=== PATIENT | female | born 1950 | race African-American/Black ===

== ENCOUNTER → 2016-03-30 | Outpatient (CLI) | payer OTHER ==
[~2016-03-30] MED LIST: AMOXICILLIN875 MG PO; AZOR 10-40 MG1 EACH PO; BENICAR20 MG PO; BYSTOLIC10 MG PO; CITRATE OF MAG296 ML PO; CLONIDINE HCL0.2 M2; CLONIDINE HCL0.2 M2 PO; CLONIDINE HCL0.3 M3 PO; COLACE100 MG PO; DILTIAZEM 24HR300 M2 PO; DOLOPHINE HCL10 MG PO; FUROSEMIDE 20 M20 M1 PO; GABAPENTIN 100100 MG PO; LIDODERM 5%1 PATCH TOP; LISINOPRIL5 MG PO; MS CONTIN 30 MG30 M1; MS CONTIN 30 MG30 M1 PO; MS CONTIN100 MG PO; MS CONTIN30 MG PO; NORCO 5-325 TA1 EACH PO; NORVASC10 MG PO; ONDANSETRON HCL4 M2 PO; OXYCODONE HCL15 MG PO; OXYCONTIN CR 2020 MG; OXYCONTIN CR 8080 M1 PO; OXYCONTIN PO; OXYCONTIN30 MG PO; OXYIR 5 MG CAPSU5 M1 PO; PEPCID40 MG PO; PERCOCET 5-3251 EACH PO; PERCOCET 7.5-51 EACH PO; PHENERGAN 25 MG25 M1 PO; POTASSIUM20 PO; PRILOSEC 20 MG20 MG PO; ROXICODONE30 M1 PO; TAZTIA XT300 M1 PO; TRIBENZOR 40-11 EAC1 PO; TRIBENZOR 40-11 EACH; ZOFRAN ODT4 MG PO
== END ==
LOC: RAD 11:04
DX: M47.816 Spondylosis without myelopathy or radiculopathy, lumbar region (principal); M47.896 Other spondylosis, lumbar region; M54.5 Low back pain

== ENCOUNTER 2016-04-06 02:03 | Emergency (ER) | payer OTHER ==
[~2016-04-06] VITALS: Ht 162.6 cm; Wt 72.6 kg
--- NOTE | ~2016-04-06 | EKG ---
[place] [address] [facility] [place] [address] ELECTROCARDIOGRAM REPORT Name: HEATHERDANIELLE [id number] Admission: 04/06/16 Attend Phys: Discharge: 04/06/16 Date of : 48 Report #: [id number] THIS REPORT FOR: //name// [facility] ED Test Date: 2016-04-06 Test Time: 02:37:21 Pat Name: DANIELLE ROMERO Department: Room: Gender: F Senior Clinical Research Associate: MCKENNA : 1950 Requested By: Carolina Bowen Order Number: [id number] MD: Amos Nunez Measurements Intervals [place] Rate: 54 P: 44 MA: 177 QRS: 3 QRSD: 91 T: 18 QT: 467 QTc: 443 Interpretive Statements Sinus rhythm Probable left atrial enlargement Abnormal R-wave progression, early transition Left ventricular hypertrophy Compared to ECG 02/17/2016 23:47:34 No significant changes Electronically Signed On 04-06-2016 13:49:44 SOFTWARE RELIABILITY ENGINEER by Amos Nunez [email or web address] <ELECTRONICALLY SIGNED> By: Amos Nunez MD, [facility] 04/06/16 1349 6 6 Amos Nunez MD, [facility] /EPI
[~2016-04-06 02:03] MED LIST changes: -BENICAR20 MG PO; -TAZTIA XT300 M1 PO
[2016-04-06] MEDS ORDERED: TAZTIA XT300 M1 PO (02:20)
[2016-04-06] MEDS ORDERED: BENICAR20 MG PO (02:20)
[2016-04-06 02:44] LABS: ABSOLUTE NEUTROPHILS 5.3 thou/uL (1.4-8.2); BASOPHILS 0.6 % (0.0-2.0); HEMATOCRIT 40.5 % (37.0-47.0); HEMOGLOBIN 13.3 gm/dL (12.0-15.0); LYMPHOCYTES 34.2 % (24.0-44.0); MCH 29.5 pg (26.0-34.0); MCHC 32.9 % (28.0-37.0); MCV 89.6 fL (80.0-100.0); MONOCYTES 7.6 % (1.0-8.0); PLATELET COUNT 275 thou/uL (150-400); POLYS 55.6 % (36.0-66.0); RBC 4.52 mil/uL (4.20-5.00); WBC 9.5 thou/uL (4.0-11.0)
[2016-04-06 02:47] LABS: MANUAL DIFF NO
[2016-04-06 03:23] LABS: POTASSIUM 4.1 mmol/L (3.5-5.1)
[2016-04-06 03:27] LABS: ALBUMIN 3.6 g/dL (3.4-5.0); CALCIUM 8.8 mg/dL (8.5-10.1); CREATININE 1.1 mg/dL (0.6-1.3)
[2016-04-06 03:35] LABS: TOTAL BILIRUBIN 0.3 mg/dL (<0.1-1.0); TOTAL PROTEIN 7.8 g/dL (6.4-8.2)
[2016-04-06 03:54] VITALS: BP 160/77
== END 2016-04-06 03:55 | disposition home or self-care (01) ==
LOC: ER 02:03
PROVIDERS: Emergency Medicine
DX: I16.0 Hypertensive urgency (principal); M19.90 Unspecified osteoarthritis, unspecified site; I10 Essential (primary) hypertension; G62.9 Polyneuropathy, unspecified; Z90.710 Acquired absence of both cervix and uterus; Z90.49 Acquired absence of other specified parts of digestive tract; Z90.89 Acquired absence of other organs; Z88.6 Allergy status to analgesic agent; Z87.891 Personal history of nicotine dependence

== ENCOUNTER 2016-07-01 22:31 | Emergency (ER) | payer OTHER ==
[~2016-07-01] VITALS: Ht 162.6 cm; Wt 72.6 kg
--- NOTE | ~2016-07-01 | EKG ---
[place] [address] [facility] [place] [address] ELECTROCARDIOGRAM REPORT Name: HEATHERDANIELLE [id number] Admission: 07/01/16 Attend Phys: Discharge: 07/01/16 Date of : [birth year] Report #: [id number] THIS REPORT FOR: //name// [facility] ED Test Date: 2016-07-01 Test Time: 23:20:25 Pat Name: DANIELLE ROMERO Department: Room: Gender: F Director Commercial Sales: MCKENNA : 1950 Requested By: Tamra Grider Order Number: [id number] MD: Amos Nunez Measurements Intervals [place] Rate: 49 P: 39 CA: 174 QRS: 1 QRSD: 99 T: 4 QT: 543 QTc: 491 Interpretive Statements Sinus bradycardia RSR' in V1 or V2, probably normal variant Borderline T abnormalities, inferior leads Borderline prolonged QT interval Compared to ECG 04/06/2016 02:37:21 no significant change was found Electronically Signed On 07-02-2016 9:04:14 CDT by Amos Nunez [email or web address] <ELECTRONICALLY SIGNED> By: Amos Nunez MD, [facility] 07/02/16 0904 19 Amos Nunez MD, [facility] /EPI
[~2016-07-01 22:31] MED LIST changes: +BENICAR20 MG PO; +TAZTIA XT300 M1 PO
[2016-07-01 23:34] VITALS: BP 139/75
== END 2016-07-01 23:34 | disposition home or self-care (01) ==
LOC: ER 22:31
DX: I10 Essential (primary) hypertension (principal); M19.90 Unspecified osteoarthritis, unspecified site; Z90.710 Acquired absence of both cervix and uterus; Z90.89 Acquired absence of other organs; Z90.49 Acquired absence of other specified parts of digestive tract; Z88.6 Allergy status to analgesic agent; Z87.891 Personal history of nicotine dependence

== ENCOUNTER → 2017-05-27 | Outpatient (CLI) | payer OTHER | LOC: RAD 13:20 | DX: Z12.31 Encounter for screening mammogram for malignant neoplasm of breast (principal) ==

== ENCOUNTER → 2018-02-03 | Outpatient (CLI) | payer OTHER | LOC: RAD 14:41 | DX: M19.072 Primary osteoarthritis, left ankle and foot (principal) ==

== ENCOUNTER → 2018-05-27 | Outpatient (CLI) | payer OTHER | LOC: RAD 11:38 | DX: Z12.31 Encounter for screening mammogram for malignant neoplasm of breast (principal) ==

== ENCOUNTER → 2019-02-17 | Outpatient (CLI) | payer OTHER | LOC: RAD 12:39 | DX: M19.071 Primary osteoarthritis, right ankle and foot (principal); M85.871 Other specified disorders of bone density and structure, right ankle and foot ==

== ENCOUNTER → 2019-06-09 | Outpatient (CLI) | payer OTHER | LOC: RAD 10:27 | DX: Z12.31 Encounter for screening mammogram for malignant neoplasm of breast (principal) ==

== ENCOUNTER 2020-03-03 05:26 | Emergency (ER) | payer OTHER ==
[~2020-03-03] VITALS: Ht 162.6 cm; Wt 65.8 kg
[2020-03-03] MEDS ORDERED: NEXIUM 24HR20 M2 PO (05:55)
[2020-03-03] MEDS ORDERED: LOSARTAN-HCTZ1 EAC3 PO (05:55)
[2020-03-03] MEDS ORDERED: K-DUR 20 MEQ T20 MEQ PO (05:59)
[2020-03-03 06:18] LABS: HEMATOCRIT 39.5 % (37.0-47.0); HEMOGLOBIN 13.3 gm/dL (12.0-15.0); MCH 30.5 pg (26.0-34.0); MCHC 33.7 g/dL (28.0-37.0); MCV 90.6 fL (80.0-100.0); RBC 4.35 mil/uL (4.20-5.00); WBC 9.7 thou/uL (4.0-11.0)
[2020-03-03 06:22] LABS: ANION GAP 11 mmol/L (7-16); BUN 23 mg/dL (7-18); CALCIUM 9.7 mg/dL (8.5-10.1); CHLORIDE 101 mmol/L (98-107); CO2 30 mmol/L (21-32); CREATININE 1.3 mg/dL (0.6-1.0); GLUCOSE 130 mg/dL (74-106); SODIUM 142 mmol/L (136-145)
[2020-03-03 06:32] LABS: ALBUMIN 4.2 g/dL (3.4-5.0); DIRECT BILIRUBIN 0.1 mg/dL (<0.1-0.2); LIPASE 53 U/L (73-393); POTASSIUM 2.9 mmol/L (3.5-5.1); SGOT 38 U/L (15-37); SGPT 34 U/L (14-59); TOTAL BILIRUBIN 0.3 mg/dL (0.2-1.0); TOTAL PROTEIN 8.1 g/dL (6.4-8.2); TROPONIN-I <0.06 ng/mL (<0.06)
[2020-03-03 08:18] VITALS: BP 152/82
--- NOTE | 2020-03-03 08:53 | EKG ---
[place] [address] [facility] [place] [address] ELECTROCARDIOGRAM REPORT Name: DANIELLE ROMERO [id number] Admission: 03/03/20 Attend Phys: Discharge: 03/03/20 Date of : 48 Report #: [id number] [facility] ED Test Date: 2020-03-03 Test Time: 05:46:18 Pat Name: DANIELLE ROMERO Department: Room: Gender: F Fence Erector Supervisor: jere : 1950 Requested By: Rodrigo Sherwood Order Number: [id number] MD: Geoffrey Gilliam Measurements Intervals [place] Rate: 75 P: 28 [place]: 167 QRS: 4 QRSD: 95 T: 31 QT: 449 QTc: 502 Interpretive Statements Sinus rhythm Probable left atrial enlargement Left ventricular hypertrophy Prolonged QT interval Compared to ECG 07/01/2016 23:20:25 Left ventricular hypertrophy now present Sinus bradycardia no longer present T-wave abnormality no longer present Electronically Signed On 03-03-2020 8:53:03 REFINERY OPERATOR VISBREAKING by Geoffrey Gilliam [email or web address] <ELECTRONICALLY SIGNED> By: Geoffrey Gilliam MD, [facility] 03/03/20 0853 D: 12545 5 Geoffrey Gilliam MD, [facility] /EPI
== END 2020-03-03 08:46 | disposition home or self-care (01) ==
LOC: ER 05:26
PROVIDERS: Emergency Medicine
DX: E87.6 Hypokalemia (principal); R11.0 Nausea; R14.2 Eructation; M19.90 Unspecified osteoarthritis, unspecified site; I10 Essential (primary) hypertension; G62.9 Polyneuropathy, unspecified; Z90.711 Acquired absence of uterus with remaining cervical stump; Z90.49 Acquired absence of other specified parts of digestive tract; Z90.89 Acquired absence of other organs; Z79.899 Other long term (current) drug therapy; Z88.6 Allergy status to analgesic agent; Z87.891 Personal history of nicotine dependence

== ENCOUNTER → 2020-06-12 | Outpatient (CLI) | payer OTHER ==
[~2020-06-12] MED LIST changes: +K-DUR 20 MEQ T20 MEQ PO; +LOSARTAN-HCTZ1 EAC3 PO; +NEXIUM 24HR20 M2 PO
== END ==
LOC: BC 13:11
PROVIDERS: ATTEND Family Medicine
DX: Z12.31 Encounter for screening mammogram for malignant neoplasm of breast (principal)

== ENCOUNTER → 2021-05-03 | Outpatient (CLI) | payer OTHER | LOC: RAD 14:54 | PROVIDERS: ATTEND Family Medicine | DX: S63.211A Subluxation of metacarpophalangeal joint of left index finger, initial encounter (principal); X58.XXXA Exposure to other specified factors, initial encounter; Y93.89 Activity, other specified; Y92.89 Other specified places as the place of occurrence of the external cause; Y99.8 Other external cause status ==